=== PATIENT | male | born 2000 | race Caucasian/White ===

== ENCOUNTER 2021-11-12 09:02 | Emergency (ER) | payer OTHER, SELFPAY ==
--- NOTE | ~2021-11-12 | XR_ITS ---
EXAMINATION: XR ANKLE, LEFT CLINICAL INFORMATION: Fall. Left ankle pain COMPARISON: None TECHNIQUE: AP, lateral, and mortise views of the left ankle. FINDINGS: The bones and soft tissues are normal. No fracture. Alignment is anatomic. Joint spaces are maintained. No joint effusion. XR/XR ankle LT 2V IMPRESSION: Unremarkable left ankle.
[2021-11-12 10:22] VITALS: BP 125/78; PULSE 72; RESP 16; TEMP 37.1; O2SAT 99; BMI 28.8
--- NOTE | 2021-11-12 12:13 | ED.LOWEXIN ---
HPI - Extremity Injury (Lower) General Chief Complaint: Extremity Injury, Lower Stated Complaint: L ankle pain Time Seen by Provider: 11/12/21 11:48 Source: patient Mode of arrival: ambulatory History of Present Illness HPI Narrative: 21-year-old male presenting to the ED complaining of left ankle pain and swelling s/p twisting injury 2 weeks ago. States was walking down the stairs and externally rotated ankle, denies head trauma or LOC. Denies nose prior to injury. Has been ambulating since. Denies numbness, tingling, weakness complaint: ankle injury Onset (ago): day(s) Related Data Allergies Allergy/AdvReac Type Severity Reaction Status Date / Time No Known Allergies Allergy Unverified 11/23/19 18:06 Review of Systems Review of Systems: Constitutional: No Fever, No Chills ENT/Mouth: No Ear Pain, No Nasal Congestion, No sore throat, No Rhinorrhea, No Swallowing Difficulty Cardiovascular: No Chest Pain, No SOB Respiratory: No Cough, No Sputum, No Wheezing Gastrointestinal: No Nausea, No Vomiting, No Diarrhea, No Constipation, No Abdominal pain Genitourinary: No Dysuria, No Urinary Frequency, No Hematuria, No Flank Pain Musculoskeletal: + joint pain, No Myalgias, + Joint Swelling Skin: No Skin Lesions, No rash Neuro: No Weakness, No Numbness, No Paresthesias Yes all other systems are reviewed and are negative Constitutional: Constitutional: Reports as per [facility] Past Medical History Attestation statement: The following information was validated with the patient. Social History Social History Advance Directives: No Advance Directives Information Provided: No Physical Exam Vital Signs: Vital Signs: Last Vital Signs Temp 98.7 F 11/12/21 10:22 Pulse 72 11/12/21 10:22 Resp 16 11/12/21 10:22 BP 125/78 11/12/21 10:22 Pulse Ox 99 11/12/21 10:22 O2 Del Method 11/12/21 10:22 BMI result Body Mass Index 28.8 Const: General: cooperative, healthy appearing and no acute distress Orientation/consciousness: patient oriented x3 Limitations: no limitations HEENT: Head: Yes normal to inspection and Yes atraumatic Ears: hearing grossly normal bilaterally General nose exam: Normal external nose present Face and sinus: Yes normal facial exam Eyes: General: appearance normal, both eyes and all related structures EOM: EOMs intact bilaterally Neck: Neck: Yes normal visual inspection and Yes no meningeal signs Resp: Effort & Inspection: normal respiratory effort and no respiratory distress Cardio: Rate: regular rate Heart sounds: S1 normal heart sound present and S2 normal heart sound present Peripheral pulses: Peripheral pulses 2+ throughout Skin: Rashes: no rashes Wounds: no wounds Neuro: General: patient oriented x3, tone normal and no meningeal signs Gait exam (Neuro): Normal gait present Extrem: Other: Left ankle with mild swelling. Tender to lateral malleolus. Knee/tib-fib and foot nontender. Full range of motion intact. Neurovascularly intact MDM - Extremity Injury (Lower) MDM Narrative Medical decision making narrative: 21-year-old male presenting to the ED complaining of left ankle pain and swelling s/p twisting injury 2 weeks ago. On exam vital signs stable, NAD, nontoxic appearing, PE as above. Concern for ankle sprain. Rule out fracture. No evidence of infection Plan: X-rays Differential Diagnosis Differential diagnosis: Likely ankle sprain and strain and ankle fracture Medical Records Attestation: I reviewed the patient's medical records. Lab Data Attestation: I reviewed the patient's lab results. Discharge Plan Discharge Clinical Impression: Ankle sprain and strain Patient Disposition: Home, Self-Care Instructions: R.I.C.E. Treatment (ED), Ankle Strain (ED) Additional Instructions: You sprain your ankle. Wear Aircast at home as needed for comfort and stability. Ice and elevate. Take Tylenol Motrin for pain and swelling. Avoid excessive running/contact sports for the next week Follow-up with your doctor Referrals: Physician,Unknown J [Primary Care Provider] -
== END 2021-11-12 12:33 | disposition home or self-care (01) ==
PROVIDERS: Emergency Provider Emergency Medicine Emergency Medical Services
DX: S93.402A Sprain of unspecified ligament of left ankle, initial encounter (principal); S96.912A Strain of unspecified muscle and tendon at ankle and foot level, left foot, initial encounter; W10.8XXA Fall (on) (from) other stairs and steps, initial encounter; Y93.9 Activity, unspecified; Y92.038 Other place in apartment as the place of occurrence of the external cause; Y99.9 Unspecified external cause status
CPT/HCPCS: 73600; 99283